=== PATIENT | male | born 1985 | race Caucasian/White ===

== ENCOUNTER 2024-09-20 17:24 | Inpatient (IN) ==
[2024-09-20 17:43] LABS: Basophils # (auto) 0.08 K/uL (0.00-0.20); Basophils % (auto) 0.6 %; Eosinophils # (auto) 0.53 K/uL (0.00-0.50); Eosinophils % (auto) 3.7 %; Hematocrit (blood only) 49.4 % (42.0-52.0); Hemoglobin 17.2 g/dl (14.0-18.0); Immature Granulocytes # (auto) 0.08 K/uL (0.01-0.20); Immature Granulocytes % (auto) 0.6 %; Lymphocytes % (auto) 16.1 %; Mean Corpuscular Hemoglobin 32.2 pg (25.0-34.0); Mean Corpuscular Hgb Conc 34.8 g/dL (32.0-36.0); Mean Corpuscular Volume 92.5 fL (80.0-100.0); Monocytes # (auto) 1.02 K/uL (0.11-0.59); Monocytes % (auto) 7.1 %; Neutrophils % (auto) 71.9 %; Platelet Count 213 K/uL (130-400); RDW Coefficient of Variation 12.8 % (11.5-14.5); RDW Standard Deviation 43.6 fL (36.4-46.3); Red Blood Count 5.34 M/uL (4.70-6.10); White Blood Count 14.31 K/ul (4.8-10.8)
[2024-09-20 18:02] LABS: Albumin Globulin Ratio 1.6 (0.9-2); Albumin Level 4.9 gm/dl (3.4-5.0); BUN Creatinine Ratio 20.2 (10-20); Calcium 10.2 mg/dl (8.6-10.3); Creatinine Clr Calc Pharmacy 115.8 ml/min; Globulin 3.1 gm/dl (2.5-4.0); Potassium 4.7 mmol/L (3.5-5.1)
[2024-09-20] MEDS: OPTIRAY 320 100ml IV ONE (18:15)
--- NOTE | 2024-09-20 18:38 | CT Scan Report ---
EXAMINATION: CT of the abdomen and pelvis performed after the administration of IV contrast TECHNIQUE: Helical CT images from the lung bases through the symphysis pubis were obtained with contrast. Coronal and sagittal reformatted images were generated at a workstation for further assessment. Dose reduction techniques were achieved by using automatic exposure control and/or adjustment of mA and/or kV according to patient size and/or use of iterative reconstruction technique. COMPARISON: None HISTORY: Abdominal pain FINDINGS: Lower chest: No consolidation. No pleural effusion or pneumothorax. Liver: No suspicious liver lesions. Portal veins appear patent. Gallbladder: No gallstones. No evidence of acute cholecystitis. Spleen: Normal size. Pancreas: No suspicious pancreatic lesions. The pancreatic duct is not dilated. Adrenal glands: No adrenal nodules. Kidneys: No hydronephrosis or obstructing renal stones. Bladder / Pelvic organs: The urinary bladder is decompressed and otherwise appears within normal limits. There is mild thickening of the wall of the bladder superiorly at the region of fistula, which communicates with the sigmoid colon. No significant air in the bladder lumen seen.. Bowel: No bowel obstruction. There is a thickened soft tissue band about the undersurface of the sigmoid colon extending to contact the urinary bladder. Inflammatory fat stranding is seen about the superior aspect of the sigmoid colon centered about a small inflamed diverticulum. The appendix is unremarkable. Lymph nodes: No retroperitoneal, mesenteric, or pelvic lymphadenopathy. Peritoneum / Retroperitoneum: No free fluid or air within the abdomen. Vessels: No infrarenal aortic aneurysm. Bones and soft tissues: No suspicious lesion in the bones. IMPRESSION: Findings of acute uncomplicated diverticulitis are seen about the superior aspect of the sigmoid colon. 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 The urinary bladder wall superiorly appears thickened, which is likely reactive. No air in the urinary bladder to specifically suggest communication to the bladder lumen. Electronically signed by Raul Gonsalez 09-20-2024 6:36 PM
--- NOTE | 2024-09-20 19:09 | Emergency Department Note ---
ED Provider Note History of Present Illness Chief Complaint: Abdominal Pain Stated Complaint: ABD PAIN, DIVERTICULITIS FLARE UP Time Seen by Provider: 09/20/24 18:44 Source: patient Mode of arrival: ambulatory Limitations: no limitations This patient is a 38-year-old male who presents to the emergency department for evaluation of abdominal pain which started 1 week ago. Patient reports that he has had abdominal pain, bloating and intermittent fevers. He began vomiting today. He reports that he has been constipated but does have an urge to move his bowels. He has had a sensation of some difficulty urinating but admits he is not eating or drinking much. He reports a history of diverticulitis and states that 7 to 8 months ago, he had his initial diagnosis and at the time had an abscess and was septic. He was hospitalized for IV antibiotics and IR drainage at [facility]. He admits he has had what he believes are some small flareups over the past 1 to 2 years, which typically improve when he stops eating for a few days. He admits that he was supposed to follow-up for a colonoscopy but has not yet done this. Denies any rectal bleeding. Home Medications Medication Instructions Recorded Confirmed Type amoxicillin 875 mg-potassium 1 tab PO BID #20 tabs 09/24/24 Rx clavulanate 125 mg tablet Allergies Allergy/AdvReac Type Severity Reaction Status Date / Time No Known Allergies Allergy Unknown Unverified 05/05/09 09:09 Past Med/Surg History Problem List Acute diverticulitis Diverticulitis Family History Other Adopted Social History Smoking Status: Never smoker Hx Alcohol Use: No Hx Substance Use: Yes Last Used Substance: Unknown Preferred Language: Belarusian Communication Ability: Effective Play Back Operator Required: No Current Living Situation: Spouse and Family Feels Safe at Home: Yes Assistive Devices: None Physical Exam Vital Signs Vital Signs - 24 hr 09/20/24 17:26 09/20/24 19:16 09/20/24 19:24 Temperature 36.6 C Temperature Source Skin Pulse Rate 102 H 93 H Respiratory Rate 18 Respiratory Effort / Characteristics Non-Labored Respiratory Depth Normal Blood Pressure 151/94 H Blood Pressure Mean 113 Pulse Oximetry 95 Oxygen Delivery Method Room Air Sepsis Recent Fever Within 48 Hours No Sepsis New/Unexplained Change in Mental Status No Sepsis Action Taken by Nursing No Action Required VITALS: Vitals are noted on the nurse's note and reviewed by myself. GENERAL: This is a 38-year-old male, in no acute distress, well-developed well- nourished. SKIN: The skin was without rashes. MOUTH: Mucous membranes moist. HEART: Regular rate and rhythm without murmurs gallops or rubs. LUNGS: Clear to auscultation bilaterally without wheezes, rales or rhonchi. ABDOMEN: Positive bowel sounds x 4. Soft, tenderness across lower abdomen. No guarding or rebound tenderness. NEURO: Patient was alert and oriented. PSYCH: Patient pleasant, cooperative. Course Administered Medications Discontinued Medications Acetaminophen (Acetaminophen 325 Mg Tab) 650 mg PO QID RIOS Stop: 10/22/24 12:59 Last Admin: 09/24/24 13:59 Dose: 650 mg Documented By: Admin: 09/24/24 07:34 Dose: 650 mg Documented By: Admin: 09/23/24 21:42 Dose: 650 mg Documented By: Admin: 09/23/24 18:01 Dose: 650 mg Documented By: Admin: 09/23/24 13:37 Dose: Not Given Documented By: Admin: 09/23/24 09:51 Dose: 650 mg Documented By: Admin: 09/22/24 21:01 Dose: 650 mg Documented By: Admin: 09/22/24 16:51 Dose: 650 mg Documented By: Admin: 09/22/24 12:32 Dose: 650 mg Documented By: RICO Sodium Chloride (Nss) 1,000 mls @ 999 mls/hr IV .Q1H1M ONE Stop: 09/20/24 20:10 Last Infusion: 09/20/24 22:59 Dose: Infused Documented By: Admin: 09/20/24 19:19 Dose: 999 mls/hr Documented By: LORENZO Piperacillin Sod/Tazobactam Sod (Zosyn) 4.5 gm in 100 mls @ 200 mls/hr IV NOW ONE Stop: 09/20/24 19:39 Last Infusion: 09/20/24 22:59 Dose: Infused Documented By: Admin: 09/20/24 19:26 Dose: 200 mls/hr Documented By: LORENZO Sodium Chloride (Nss) 1,000 mls @ 125 mls/hr IV .Q8H RIOS Stop: 09/21/24 20:44 Last Infusion: 09/21/24 22:27 Dose: Infused Documented By: Admin: 09/21/24 14:27 Dose: 125 mls/hr Documented By: Infusion: 09/21/24 13:57 Dose: Infused Documented By: Admin: 09/21/24 05:57 Dose: 125 mls/hr Documented By: Infusion: 09/21/24 05:56 Dose: Infused Documented By: Admin: 09/20/24 21:04 Dose: 125 mls/hr Documented By: TIGIST Acetaminophen (Ofirmev) 1,000 mg in 100 mls @ 400 mls/hr IV Q8H PRN PRN Reason: Pain or Fever Stop: 09/23/24 22:57 Last Infusion: 09/22/24 08:52 Dose: Infused Documented By: Admin: 09/22/24 08:11 Dose: 400 mls/hr Documented By: Infusion: 09/21/24 12:47 Dose: Infused Documented By: Admin: 09/21/24 12:19 Dose: 400 mls/hr Documented By: YOBANY Piperacillin Sod/Tazobactam Sod (Zosyn) 4.5 gm in 100 mls @ 25 mls/hr IV Q8H RIOS; Protocol Stop: 10/01/24 01:59 Last Infusion: 09/24/24 14:12 Dose: Infused Documented By: Admin: 09/24/24 10:09 Dose: 25 mls/hr Documented By: Infusion: 09/24/24 06:32 Dose: Infused Documented By: Admin: 09/24/24 01:38 Dose: 25 mls/hr Documented By: EFAc Infusion: 09/23/24 22:05 Dose: Infused Documented By: Admin: 09/23/24 18:01 Dose: 25 mls/hr Documented By: Infusion: 09/23/24 13:59 Dose: Infused Documented By: Infusion: 09/23/24 10:00 Dose: 25 mls/hr Documented By: Infusion: 09/23/24 09:53 Dose: 0 mls/hr Documented By: Admin: 09/23/24 09:52 Dose: 25 mls/hr Documented By: Infusion: 09/23/24 06:26 Dose: Infused Documented By: Admin: 09/23/24 02:32 Dose: 25 mls/hr Documented By: Infusion: 09/22/24 22:08 Dose: Infused Documented By: Admin: 09/22/24 17:53 Dose: 25 mls/hr Documented By: Infusion: 09/22/24 15:19 Dose: Infused Documented By: Admin: 09/22/24 11:07 Dose: 25 mls/hr Documented By: Infusion: 09/22/24 05:32 Dose: Infused Documented By: Admin: 09/22/24 01:29 Dose: 25 mls/hr Documented By: Infusion: 09/21/24 22:34 Dose: Infused Documented By: Admin: 09/21/24 18:34 Dose: 25 mls/hr Documented By: Infusion: 09/21/24 15:21 Dose: Infused Documented By: Admin: 09/21/24 10:02 Dose: 25 mls/hr Documented By: Infusion: 09/21/24 06:27 Dose: Infused Documented By: Admin: 09/21/24 02:18 Dose: 25 mls/hr Documented By: SANDRA Sodium Chloride (Nss) 1,000 mls @ 125 mls/hr IV .Q8H RIOS Stop: 09/22/24 16:14 Last Infusion: 09/22/24 17:48 Dose: Infused Documented By: Admin: 09/22/24 08:11 Dose: 125 mls/hr Documented By: RICO Sodium Chloride (Nss) 1,000 mls @ 80 mls/hr IV .[id number] RIOS Stop: 09/23/24 16:29 Last Infusion: 09/23/24 08:17 Dose: Infused Documented By: Admin: 09/22/24 19:35 Dose: 80 mls/hr Documented By: Infusion: 09/22/24 19:35 Dose: Infused Documented By: Admin: 09/22/24 16:54 Dose: 80 mls/hr Documented By: RICO Ioversol (Optiray 320 100ml) 93 ml IV ONCE ONE Stop: 09/20/24 18:16 Last Admin: 09/20/24 18:15 Dose: 93 ml Documented By: EARLENE Ketorolac Tromethamine (Ketorolac Tromethamine 15 Mg/Ml Vial) 15 mg IV NOW STA Stop: 09/20/24 19:11 Last Admin: 09/20/24 19:22 Dose: 15 mg Documented By: LORENZO Ketorolac Tromethamine (Ketorolac Tromethamine 15 Mg/Ml Vial) 10 mg IV Q6H PRN PRN Reason: Pain (1-5) or patient preferen Last Admin: 09/22/24 17:57 Dose: 10 mg Documented By: Admin: 09/21/24 14:43 Dose: 10 mg Documented By: YOBANY Morphine Sulfate (Morphine Sulfate 4 Mg/Ml 1 Ml Carp\Vial) 2 mg IV Q6H PRN PRN Reason: Pain (6,7,8,9,10) Stop: 10/04/24 22:57 Last Admin: 09/21/24 15:26 Dose: 2 mg Documented By: YOBANY Ondansetron HCl (Ondansetron Inj 2 Mg/Ml 2 Ml Vial) 4 mg IV NOW STA Stop: 09/20/24 19:11 Last Admin: 09/20/24 19:22 Dose: 4 mg Documented By: LORENZO Ondansetron HCl (Ondansetron Inj 2 Mg/Ml 2 Ml Vial) 4 mg IV Q6H PRN PRN Reason: Nausea Stop: 10/20/24 22:57 Last Admin: 09/21/24 15:27 Dose: 4 mg Documented By: YOBANY Medical Decision Making Differential Diagnosis Appendicitis, testicular torsion, infections, diverticulitis, UTI, obstruction, mesenteric ischemia, aortic pathology, inflammatory bowel disease, renal colic, PUD, pancreatitis, biliary pathology, hernia, volvulus, constipation, as well as other pathologies. Laboratory Data Attestation: I reviewed the patient's lab results. 09/24/24 07:15 09/24/24 07:15 Lab Results 09/20/24 09/20/24 09/20/24 Range/Units 17:31 17:32 19:35 WBC 14.31 H (4.8-10.8) K/ul RBC 5.34 (4.70-6.10) M/uL Hgb 17.2 (14.0-18.0) g/dl Hct 49.4 (42.0-52.0) % MCV 92.5 (80.0-100.0) fL MCH 32.2 (25.0-34.0) pg MCHC 34.8 (32.0-36.0) g/dL RDW Std Deviation 43.6 (36.4-46.3) fL RDW Coeff of Kelly 12.8 (11.5-14.5) % Plt Count 213 (130-400) K/uL MPV 10.0 (9.4-12.4) fL Immature Gran % (Auto) 0.6 % Neut % (Auto) 71.9 % Lymph % (Auto) 16.1 % [place] % (Auto) 7.1 % Eos % (Auto) 3.7 % Baso % (Auto) 0.6 % Neut # (Auto) 10.30 H (1.40-6.50) K/uL Lymph # (Auto) 2.30 (1.20-3.40) K/uL [place] # (Auto) 1.02 H (0.11-0.59) K/uL Eos # (Auto) 0.53 H (0.00-0.50) K/uL Baso # (Auto) 0.08 (0.00-0.20) K/uL Immature Gran # (Auto) 0.08 (0.01-0.20) K/uL Sodium 137 (136-145) mmol/L Potassium 4.7 (3.5-5.1) mmol/L Chloride 100 (98-107) mmol/L Carbon Dioxide 30 (21-32) mmol/L Anion Gap 7 (3-11) BUN 23 (6-23) mg/dl Creatinine 1.14 (0.6-1.4) mg/dl Est Cr Clr Drug Dosing 115.8 ml/min eGFR 85.48 BUN/Creatinine Ratio 20.2 H (10-20) Glucose 94 (70-99(Fasting)) mg/dl Lactate 1.0 (0.4-2.0) mmol/L Calcium 10.2 (8.6-10.3) mg/dl Total Bilirubin 1.0 (0.2-1.0) mg/dl AST 20 (13-39) U/L ALT 26 (7-52) U/L Alkaline Phosphatase 60 (34-104) U/L Total Protein 8.0 (6.0-8.3) gm/dl Albumin 4.9 (3.4-5.0) gm/dl Globulin 3.1 (2.5-4.0) gm/dl Albumin/Globulin Ratio 1.6 (0.9-2) Lipase 14 (11-82) U/L Procalcitonin 0.07 (0-0.5) ng/ml Imaging Data Attestation: I personally reviewed and interpreted this imaging study as follows: Radiologist's Impression: Abdomen/Pelvis CT 09/20/24 17:34 EXAMINATION: CT of the abdomen and pelvis performed after the administration of IV contrast TECHNIQUE: Helical CT images from the lung bases through the symphysis pubis were obtained with contrast. Coronal and sagittal reformatted images were generated at a workstation for further assessment. Dose reduction techniques were achieved by using automatic exposure control and/or adjustment of mA and/or kV according to patient size and/or use of iterative reconstruction technique. COMPARISON: None HISTORY: Abdominal pain FINDINGS: Lower chest: No consolidation. No pleural effusion or pneumothorax. Liver: No suspicious liver lesions. Portal veins appear patent. Gallbladder: No gallstones. No evidence of acute cholecystitis. Spleen: Normal size. Pancreas: No suspicious pancreatic lesions. The pancreatic duct is not dilated. Adrenal glands: No adrenal nodules. Kidneys: No hydronephrosis or obstructing renal stones. Bladder / Pelvic organs: The urinary bladder is decompressed and otherwise appears within normal limits. There is mild thickening of the wall of the bladder superiorly at the region of fistula, which communicates with the sigmoid colon. No significant air in the bladder lumen seen.. Bowel: No bowel obstruction. There is a thickened soft tissue band about the undersurface of the sigmoid colon extending to contact the urinary bladder. Inflammatory fat stranding is seen about the superior aspect of the sigmoid colon centered about a small inflamed diverticulum. The appendix is unremarkable. Lymph nodes: No retroperitoneal, mesenteric, or pelvic lymphadenopathy. Peritoneum / Retroperitoneum: No free fluid or air within the abdomen. Vessels: No infrarenal aortic aneurysm. Bones and soft tissues: No suspicious lesion in the bones. IMPRESSION: Findings of acute uncomplicated diverticulitis are seen about the superior aspect of the sigmoid colon. 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 The urinary bladder wall superiorly appears thickened, which is likely reactive. No air in the urinary bladder to specifically suggest communication to the bladder lumen. Electronically signed by Raul Gonsalez 09-20-2024 6:36 PM MDM Narrative This patient is a 38-year-old male who presents to the emergency department for evaluation of abdominal pain, vomiting and fevers. Patient has a history of diverticulitis with abscess requiring hospitalization and IR drainage. Patient is from out of town and is visiting family in the area. Labs revealed a leukocytosis of 14,000. Lactate is not elevated. Kidney function within normal limits. CT of the abdomen/pelvis performed and reviewed by radiology. This shows acute uncomplicated diverticulitis with findings suspicious for a fistula. General surgery was consulted and due to patient's history and severity of symptoms did recommend admission with IV antibiotics. Patient given a dose of Zosyn. He was treated with IV fluids, Zofran and Toradol with improvement. Case discussed with the [facility] hospitalist service who will evaluate the patient for admission. Discharge Plan Visit Data Chief Complaint: Abdominal Pain Stated Complaint: ABD PAIN, DIVERTICULITIS FLARE UP ED Provider: Mikey Hensley ED Midlevel Provider: Becky Garibay Patient Disposition: Admitted As Inpatient Discharge Instructions Interventions: ED Discharge Assessment Last Done: 09/20/24 22:14
[2024-09-20] MEDS: SODIUM CHLORIDE 0.9% 1,000 ML IV ONE (19:19)
[2024-09-20] MEDS: KETOROLAC TROMETHAMINE 15 MG/ML VIAL IV STA (19:22)
[2024-09-20] MEDS: ONDANSETRON INJ 2 MG/ML 2 ML VIAL IV STA (19:22)
[2024-09-20] MEDS: PIPERACILLIN/TAZOBACTAM 4.5 GM/100 ML BAG IV ONE (19:26)
--- NOTE | 2024-09-20 20:37 | Surgery Consultation ---
Date of Consultation September 20, 2024 Assessment & Plan (1) Diverticulitis: I discussed with the treating clinician in the emergency department the patient is being admitted on the hospitalist service. From surgery perspective we recommend the following: As the patient previously was treated for diverticulitis in a conservative manner will implement a similar treatment strategy at this time Would recommend keeping the patient n.p.o. (I feel it would be acceptable for him to have an occasional ice chip for comfort) He should be hydrated with intravenous fluids (I have ordered normal saline solution at 125 cc/h) Antibiotics in form of Zosyn have been initiated and he should be continued Blood cultures have been sent we will follow for the results of these There is concern on patient's CT scan that he may have an underlying colovesical fistula. Would recommend checking urinalysis and this has been ordered and is pending. Will follow-up for the results of this. If there does remain ongoing concern for colovesical fistula consideration can be given to performing CT cystogram I did discuss with the patient that it would be preferable to treat him in a conservative manner as any emergent surgery would require a temporary colostomy which she would like to avoid. I also discussed with the patient that will be preferable for him to have an up-to-date colonoscopy prior to undergoing any surgical intervention for this problem and he expressed his understanding At the present time the patient is nontoxic-appearing. He is normotensive with only slight tachycardia (heart rate is in the 90s) and he is afebrile. He does have a slight leukocytosis but his renal function is normal and he does not have an elevated lactic acid level and therefore I feel conservative management is warranted at this time Additional recommendations will be forthcoming based on his clinical course as it unfolds History of Present Illness Reason for Consultation: Diverticulitis History of Present Illness This is a 38-year-old male who presented to the emergency department secondary to abdominal pain. Patient reports that approximately 6 months ago he was treated for diverticulitis at a hospital in [place] where he lives. ([place] is [place] During this episode of diverticulitis he was treated in a conservative manner with intravenous fluids, bowel rest, and antibiotics. Patient says that he was able to be discharged home where he made a full recovery and was recommended that he undergo a colonoscopy in the near future. He does report that he has yet to have this procedure performed. As noted above the patient presented to the emergency department secondary to abdominal pain. The patient says that the pain has been present for "a few days". He says that he has been febrile with fevers as high as 101. He does not report any mitigating factors to the pain and the pain does not radiate but is located primarily on the left side of his abdomen. He says his most recent bowel movement was approximately 2 days ago. He says he has not had any oral intake since last night. He has never had any abdominal surgeries. Concerning urologic symptomatology he denies any dysuria notes that his urine is clear and not discolored. He has no hematuria. He also has no pneumaturia. Since arrival to the hospital this patient has had labs and imaging which independent reviewed. A CT scan of the abdomen pelvis that showed the patient had findings consistent with acute uncomplicated diverticulitis in the superior aspect of the sigmoid colon. There was thickening/bandlike tissue structure extending to the urinary bladder which was concerning for an underlying fistula. There is no air in the urinary bladder however. Labs included CBC white blood cell count was elevated 14.3. Hemoglobin, hematocrit, and platelet count were normal. Chemistry profile showed sodium and potassium as well as the BUN and creatinine were normal. His lactic acid level is nonelevated 1.0. There is no elevation of LFTs or lipase. At the time of my interview the patient was resting comfortably bed and he was in no distress. Allergies Allergy/AdvReac Type Severity Reaction Status Date / Time No Known Allergies Allergy Unknown Unverified 05/05/09 09:09 Home Medications Medication Instructions Recorded Confirmed Type No Known Home Medications 09/20/24 09/20/24 History Patient History Social History Smoking Status: Never smoker Review of Systems Review of Systems: All systems reviewed & are unremarkable except as noted in HPI & below Physical Exam Constitutional: WD/WN, vitals as above Eyes: no conjunctival abnormality ENMT: Ears: no hearing impairment and no external ear abnormality Mouth: no oropharynx abnormality Neck: trachea midline Respiratory: normal respiratory effort; no respiratory distress and no labored breathing Cardiovascular: Rate/Rhythm: regular rate and regular rhythm Vessels: dorsalis pedis pulses present Gastrointestinal (Abdomen): Patient's abdomen is soft and nondistended. There is pain noted palpation greatest on the left side of his abdomen but there is no rebound tenderness or guarding or other signs of peritonitis. Musculoskeletal: No calf tenderness Skin: no rashes Neurologic: moves all extremities Psychiatric: A+Ox3, euthymic affect Results & Data Vital Signs (Past 12 Hours) Vital Signs Temp Pulse Resp BP Pulse Ox O2 Del Method 09/20/24 19:16 93 H 09/20/24 17:26 36.6 C 102 H 18 151/94 H 95 Room Air PG Care Time/CCT Total # of Minutes Spent Total Time Spent with Patient: Total time spent is greater than 50% in coordination of care (as documented) at patient's floor/unit and/or counseling patient: Coding Level of Care Code 37905 IN/OBS CONSULT LVL 5,80M Diagnoses Diverticulitis K57.92
[2024-09-20] MEDS: SODIUM CHLORIDE 0.9% 1,000 ML IV SCH (21:04)
--- NOTE | 2024-09-20 21:23 | History & Physical Report ---
Date of Service September 20, 2024 Assessment & Plan (1) Acute diverticulitis: Plan Pt is a 38 yo male with a past medical history of pior complicated diverticulitis 6 months ago who presents to the hospital on 09/20 for acute uncomplicated diverticulitis. #Acute diverticulitis - prior hx of diverticulitis 6 months ago, scheduled for OP colonoscopy in November - CT abd; acute uncomplicated diverticulitis, possible fistula extending to but not communicating with bladder noted - started on zosyn, to continue on admission - npo per surgery reccs - blood cx pending - seen by gen surgery team that recommend admission for monitoring given inability to po and fevers at home for IV antibiotics tonight VTE ppx: none, low risk History of Present Illness Chief Complaint: Acute uncomplicated diverticulitis Primary Care Provider: NO PCP Pt is a 38 yo male with a past medical history of pior complicated diverticu litis 6 months ago who presents to the hospital on 09/20 for acute uncomplicated diverticulitis. Pt states that episode started a few days ago with abdominal pain. He states he had diverticulitis about 6 months ago in [place] and was due to have a f/u colonoscopy from that at the beginning of November before establishing with GI for further guidance. He states that he has had just about no oral intake the last day or so since eating food made his abdominal pain and nausea/vomiting worse. He reports fevers at home the last few days up to 101 F. He states right now he is feeling well but has not eaten anything since being here either. No chest pain or SOB. No nausea or vomiting since being here. Allergies Allergy/AdvReac Type Severity Reaction Status Date / Time No Known Allergies Allergy Unknown Unverified 05/05/09 09:09 Home Medications Medication Instructions Recorded Confirmed Type No Known Home Medications 09/20/24 09/20/24 History Past Med/Surg History Problem List Acute diverticulitis Diverticulitis Family History Other Adopted Social History Smoking Status: Never smoker Hx Alcohol Use: No Hx Substance Use: Yes Last Used Substance: Unknown Preferred Language: Portuguese Communication Ability: Effective Internet Marketing Consultant Required: No Current Living Situation: Spouse and Family Other Information That Helps Us Care for You: No Feels Safe at Home: Yes Safety Concerns: Feels Safe At This Time Assistive Devices: None Review of Systems Review of Systems: Per HPI. Physical Exam Physical Exam: General: Alert and oriented, no acute distress, comfortable appearing HEENT: Normocephalic, moist oral mucosa, Cardio: Regular rate and rhythm, no murmur, Resp: Lungs clear to auscultation b/l, no wheezes or rhonchi, GI: Soft, nondistended, bowel sounds active, diffuse tenderness to palpation deyvi ecially in LLQ Skin: Warm, pink, dry, Results & Data Results & Data Vital Signs (Past 12 Hours) Vital Signs Temp Pulse Resp BP Pulse Ox O2 Del Method 09/20/24 19:16 93 H 09/20/24 17:26 36.6 C 102 H 18 151/94 H 95 Room Air Laboratory Results Laboratory Results WBC 14.31 K/ul (4.8-10.8) H 09/20/24 17:31 RBC 5.34 M/uL (4.70-6.10) 09/20/24 17:31 Hgb 17.2 g/dl (14.0-18.0) 09/20/24 17:31 Hct 49.4 % (42.0-52.0) 09/20/24 17:31 MCV 92.5 fL (80.0-100.0) 09/20/24 17:31 MCH 32.2 pg (25.0-34.0) 09/20/24 17:31 MCHC 34.8 g/dL (32.0-36.0) 09/20/24 17:31 RDW Std Deviation 43.6 fL (36.4-46.3) 09/20/24 17:31 RDW Coeff of Kelly 12.8 % (11.5-14.5) 09/20/24 17:31 Plt Count 213 K/uL (130-400) 09/20/24 17:31 MPV 10.0 fL (9.4-12.4) 09/20/24 17:31 Immature Gran % (Auto) 0.6 % 09/20/24 17:31 Neut % (Auto) 71.9 % 09/20/24 17:31 Lymph % (Auto) 16.1 % 09/20/24 17:31 [place] % (Auto) 7.1 % 09/20/24 17:31 Eos % (Auto) 3.7 % 09/20/24 17:31 Baso % (Auto) 0.6 % 09/20/24 17:31 Neut # (Auto) 10.30 K/uL (1.40-6.50) H 09/20/24 17:31 Lymph # (Auto) 2.30 K/uL (1.20-3.40) 09/20/24 17:31 [place] # (Auto) 1.02 K/uL (0.11-0.59) H 09/20/24 17:31 Eos # (Auto) 0.53 K/uL (0.00-0.50) H 09/20/24 17:31 Baso # (Auto) 0.08 K/uL (0.00-0.20) 09/20/24 17:31 Immature Gran # (Auto) 0.08 K/uL (0.01-0.20) 09/20/24 17:31 Sodium 137 mmol/L (136-145) 09/20/24 17:31 Potassium 4.7 mmol/L (3.5-5.1) 09/20/24 17:31 Chloride 100 mmol/L (98-107) 09/20/24 17:31 Carbon Dioxide 30 mmol/L (21-32) 09/20/24 17:31 Anion Gap 7 (3-11) 09/20/24 17:31 BUN 23 mg/dl (6-23) 09/20/24 17:31 Creatinine 1.14 mg/dl (0.6-1.4) 09/20/24 17:31 Est Cr Clr Drug Dosing 115.8 ml/min 09/20/24 17:31 eGFR 85.48 09/20/24 17:31 BUN/Creatinine Ratio 20.2 (10-20) H 09/20/24 17:31 Glucose 94 mg/dl (70-99(Fasting)) 09/20/24 17:31 Lactate 1.0 mmol/L (0.4-2.0) 09/20/24 19:35 Calcium 10.2 mg/dl (8.6-10.3) 09/20/24 17:31 Total Bilirubin 1.0 mg/dl (0.2-1.0) 09/20/24 17:31 AST 20 U/L (13-39) 09/20/24 17:31 ALT 26 U/L (7-52) 09/20/24 17:31 Alkaline Phosphatase 60 U/L (34-104) 09/20/24 17:31 Total Protein 8.0 gm/dl (6.0-8.3) 09/20/24 17: Albumin 4.9 gm/dl (3.4-5.0) 09/20/24 17: Globulin 3.1 gm/dl (2.5-4.0) 09/20/24 17: Albumin/Globulin Ratio 1.6 (0.9-2) 09/20/24 17: Lipase 14 U/L (11-82) 09/20/24 17:31 Urine Color Yellow 09/20/24 23:10 Urine Appearance Clear (Clear) 09/20/24 23:10 Urine pH 5.0 (4.5-7.5) 09/20/24 23:10 Ur Specific [employer] > 1.045 (1.000-1.030) H 09/20/24 23:10 Urine Protein Negative (Negative) 09/20/24 23:10 Urine Glucose (UA) Negative (Negative) 09/20/24 23:10 Urine Ketones Negative (Negative) 09/20/24 23:10 Urine Blood Negative (Negative) 09/20/24 23:10 Urine Nitrite Negative (Negative) 09/20/24 23:10 Urine Bilirubin Negative (Negative) 09/20/24 23:10 Urine Urobilinogen Negative (Negative) 09/20/24 23:10 Ur Leukocyte Esterase Negative (Negative) 09/20/24 23:10 Impressions Abdomen/Pelvis CT 09/20/24 17:34 EXAMINATION: CT of the abdomen and pelvis performed after the administration of IV contrast TECHNIQUE: Helical CT images from the lung bases through the symphysis pubis were obtained with contrast. Coronal and sagittal reformatted images were generated at a workstation for further assessment. Dose reduction techniques were achieved by using automatic exposure control and/or adjustment of mA and/or kV according to patient size and/or use of iterative reconstruction technique. COMPARISON: None HISTORY: Abdominal pain FINDINGS: Lower chest: No consolidation. No pleural effusion or pneumothorax. Liver: No suspicious liver lesions. Portal veins appear patent. Gallbladder: No gallstones. No evidence of acute cholecystitis. Spleen: Normal size. Pancreas: No suspicious pancreatic lesions. The pancreatic duct is not dilated. Adrenal glands: No adrenal nodules. Kidneys: No hydronephrosis or obstructing renal stones. Bladder / Pelvic organs: The urinary bladder is decompressed and otherwise appears within normal limits. There is mild thickening of the wall of the bladder superiorly at the region of fistula, which communicates with the sigmoid colon. No significant air in the bladder lumen seen.. Bowel: No bowel obstruction. There is a thickened soft tissue band about the undersurface of the sigmoid colon extending to contact the urinary bladder. Inflammatory fat stranding is seen about the superior aspect of the sigmoid colon centered about a small inflamed diverticulum. The appendix is unremarkable. Lymph nodes: No retroperitoneal, mesenteric, or pelvic lymphadenopathy. Peritoneum / Retroperitoneum: No free fluid or air within the abdomen. Vessels: No infrarenal aortic aneurysm. Bones and soft tissues: No suspicious lesion in the bones. IMPRESSION: Findings of acute uncomplicated diverticulitis are seen about the superior aspect of the sigmoid colon. 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 The urinary bladder wall superiorly appears thickened, which is likely reactive. No air in the urinary bladder to specifically suggest communication to the bladder lumen. Electronically signed by Raul Gonsalez 09-20-2024 6:36 PM Supervising Physician Co-Signing Physician Notes patient seen and examined, chart reviewed, case discussed with Dr. Mosqueda likely with the assessment and plan as documented above. In brief, patient is a 38-year-old male with history of prior acute diverticulitis sepsis presenting with diffuse abdominal pain. CT abdomen as above with evidence of acute uncomplicated diverticulitis. evidence of possible fistula. Patient reports fevers prior to arrival. Presently is afebrile and hemodynamically stable. Nontoxic in appearance. He does have significant lower abdominal tenderness with some voluntary guarding. No bloating, no rebound, no peritonitis. On physical exam he is afebrile, hemodynamically stable and nontoxic in appearance Skinwarm, dry, intact no rash or lesions HEENTmoist mucous membranes, neck supple Heart+ S1, S2, regular, no murmur/rub/gallops LungsCTA anteriorly, no rales/rhonchi/wheezes Abdomendiminished bowel sounds but present, no distention, lower abdominal te nderness with no rebound Extremitieswarm, well-perfused Labs and images reviewed. Significant for WBC = 14.31. He does have very mild elevation of peripheral eosinophils. Question possibility of eosinophilic colitis Assessment/[id number] male presenting with acute uncomplicated diverticulitis. Patient with prior history of severe diverticulitis requiring hospitalization. Presently he is afebrile, hemodynamically stable and nontoxic admit to medical Maintain n.p.o. status Continue IV fluids with normal saline at 125 mL/h Pain control Tylenol morphine as needed Zofran as needed for nausea Continue Zosyn 4.5 g IV every 8 hours General Surgery consultation appreciated Patient is scheduled for colonoscopy in November Remainder of plan as above Resident Activity Tracking Resident Involvement: Resident Care Provided Care Provided: Adult Hospital Medicine
[2024-09-20] MEDS ORDERED: MoRPHine SULFATE 4 MG/ML 1 ML CARP\\VIAL IV PRN (22:58)
[2024-09-20 23:25] LABS: Appearance Urine Clear (Clear); Bilirubin Urine Negative (Negative); Blood Urine Negative (Negative); Color Urine Yellow; Glucose Urine UA Negative (Negative); Ketones Urine Negative (Negative); Leukocyte Esterase Urine Negative (Negative); Nitrite Urine Negative (Negative); Protein Urine Negative (Negative); Specific Gravity Urine > 1.045 (1.000-1.030); Urobilinogen Urine Negative (Negative)
--- NOTE | 2024-09-21 00:12 | Billing Data ---
Date of Service September 20, 2024 Coding Level of Care Code 29041 INT INP/OBS CARE
[2024-09-21] MEDS: PIPERACILLIN/TAZOBACTAM 4.5 GM/100 ML BAG IV SCH (02:18)
[2024-09-21 08:29] LABS: Basophils # (auto) 0.07 K/uL (0.00-0.20); Basophils % (auto) 0.6 %; Eosinophils # (auto) 0.35 K/uL (0.00-0.50); Eosinophils % (auto) 3.2 %; Hematocrit (blood only) 42.2 % (42.0-52.0); Hemoglobin 14.4 g/dl (14.0-18.0); Immature Granulocytes # (auto) 0.04 K/uL (0.01-0.20); Immature Granulocytes % (auto) 0.4 %; Lymphocytes # (auto) 2.75 K/uL (1.20-3.40); Mean Corpuscular Hgb Conc 34.1 g/dL (32.0-36.0); Mean Corpuscular Volume 93.8 fL (80.0-100.0); Mean Platelet Volume 10.4 fL (9.4-12.4); Monocytes # (auto) 1.08 K/uL (0.11-0.59); Monocytes % (auto) 9.8 %; Neutrophils # (auto) 6.69 K/uL (1.40-6.50); Platelet Count 168 K/uL (130-400); RDW Coefficient of Variation 12.8 % (11.5-14.5); RDW Standard Deviation 44.7 fL (36.4-46.3); White Blood Count 10.98 K/ul (4.8-10.8)
[2024-09-21 08:44] LABS: Albumin Globulin Ratio 1.5 (0.9-2); Bilirubin,Total 1.5 mg/dl (0.2-1.0); Calcium 8.5 mg/dl (8.6-10.3); Creatinine Clr Calc Pharmacy 133.1 ml/min; Globulin 2.6 gm/dl (2.5-4.0); Potassium 4.1 mmol/L (3.5-5.1); Total Protein 6.6 gm/dl (6.0-8.3)
[2024-09-21 08:50] LABS: C Reactive Protein 5.11 mg/dl (0-0.5)
[2024-09-21] MEDS: ACETAMINOPHEN 1,000 MG/100 ML VIAL IV PRN (12:19)
--- NOTE | 2024-09-21 12:38 | Surgery Progress Note ---
Date of Service September 21, 2024 Assessment & Plan (1) Acute diverticulitis: Plan: pt here w/ recurring diverticulitis wbc 10 (14). vitals are stable and is afebrile overall pt is feeling improved we are okay with starting clear liquids, would leave at this today recommend pt f/u with a surgeon closer to home ([place]) for consideration of elective surgical resection given recurring episodes & concern for fistula to bladder & his young age no plans for acute surgical intervention indicated at this time. he will benefit from at least another 24hrs of iv abx as above. improving. no urgent surgical intervention indicated. will continue to follow. can have clears Admission and Anticipated Discharge Date Admission Date: September 20, 2024 Subjective Patient feeling better than admission, however still with some pain/discomfort lingering, but overall improved. thirsty. Physical Exam Physical Exam: awake/alert, no distress Gastrointestinal (Abdomen): Percussion/Palpation: + abdomen tender (mild lower abdominal) and abdomen soft Results & Data Vital Signs (Past 12 Hours) Vital Signs Temp Pulse Resp BP Pulse Ox O2 Del Method O2 Flow Rate 09/21/24 07:39 98.1 F 84 16 137/79 93 Nasal Cannula 2 PG Care Time/CCT Total # of Minutes Spent Total Time Spent with Patient: Total time spent is greater than 50% in coordination of care (as documented) at patient's floor/unit and/or counseling patient: Coding Level of Care Code 17609 SUB INP/OBS CARE 10/08MIN Diagnoses Acute diverticulitis K57.92
[2024-09-21] MEDS ORDERED: POLYETHYLENE (MIRALAX) 17 GM PACK PO PRN (14:30)
[2024-09-21] MEDS: KETOROLAC TROMETHAMINE 15 MG/ML VIAL IV PRN (14:43)
[2024-09-21] MEDS: MoRPHine SULFATE 4 MG/ML 1 ML CARP\\VIAL IV PRN (15:26)
[2024-09-21] MEDS: ONDANSETRON INJ 2 MG/ML 2 ML VIAL IV PRN (15:27)
--- NOTE | 2024-09-21 16:35 | Hospitalist Progress Note ---
Date of Service September 21, 2024 Assessment & Plan (1) Acute diverticulitis: Plan Pt is a 38 yo male with a past medical history of pior complicated diverticulitis 6 months ago who presents to the hospital on 09/20 for acute uncomplicated diverticulitis. #Acute diverticulitis - prior hx of diverticulitis 6 months ago, scheduled for OP colonoscopy in November - CT abd; acute uncomplicated diverticulitis, possible fistula extending to but not communicating with bladder noted - started on zosyn, to continue on admission - clear liquid diet started 09/21. - blood cx pending -General surgery following - recommending no surgical intervention at this time and to continue supportive care. - CBC w/ leukocytosis downtrending to 10.98 - BMP w/ stable electrolytes and renal function. - CRP 5.11 - will continue to trend. - Procal negative at 0.07 VTE ppx: none, low risk Admission and Anticipated Discharge Date Admission Date: September 20, 2024 Subjective Patient seen and examined this morning. He felt his pain was improving. He reported no bowel movements thus far. He did feel that he would be able to tolerate a liquid diet and was requesting some water. Physical Exam Constitutional: WD/WN, vitals as above Eyes: PERRL, conjunctivae normal, anicteric sclerae Respiratory: breathing unlabored Cardiovascular: well perfused Gastrointestinal (Abdomen): +BS, LLQ tenderness to palpation. soft. Psychiatric: A+Ox3, euthymic affect Results & Data Results & Data Vital Signs (Past 12 Hours) Vital Signs Temp Pulse Resp BP Pulse Ox O2 Del Method O2 Flow Rate 09/21/24 16:23 36.8 C 99 H 16 142/85 H 97 Room Air 09/21/24 07:39 36.7 C 84 16 137/79 93 Nasal Cannula 2 PG Care Time/CCT Total # of Minutes Spent Total Time Spent with Patient: Total time spent is greater than 50% in coordination of care (as documented) at patient's floor/unit and/or counseling patient: Coding Level of Care Code 36218 SUB INP/OBS CARE 2/35MIN Diagnoses Acute diverticulitis K57.92
[2024-09-22 07:36] LABS: Basophils # (auto) 0.07 K/uL (0.00-0.20); Basophils % (auto) 0.5 %; Eosinophils % (auto) 0.7 %; Hematocrit (blood only) 42.4 % (42.0-52.0); Hemoglobin 14.8 g/dl (14.0-18.0); Immature Granulocytes # (auto) 0.09 K/uL (0.01-0.20); Immature Granulocytes % (auto) 0.6 %; Lymphocytes # (auto) 1.81 K/uL (1.20-3.40); Lymphocytes % (auto) 12.7 %; Mean Corpuscular Hemoglobin 31.8 pg (25.0-34.0); Mean Corpuscular Hgb Conc 34.9 g/dL (32.0-36.0); Mean Corpuscular Volume 91.2 fL (80.0-100.0); Mean Platelet Volume 10.2 fL (9.4-12.4); Monocytes # (auto) 1.11 K/uL (0.11-0.59); Monocytes % (auto) 7.8 %; Neutrophils # (auto) 11.04 K/uL (1.40-6.50); Neutrophils % (auto) 77.7 %; Platelet Count 166 K/uL (130-400); RDW Coefficient of Variation 12.6 % (11.5-14.5); RDW Standard Deviation 41.8 fL (36.4-46.3); Red Blood Count 4.65 M/uL (4.70-6.10); White Blood Count 14.22 K/ul (4.8-10.8)
[2024-09-22 07:38] LABS: Albumin Level 4.1 gm/dl (3.4-5.0); Bilirubin,Total 1.9 mg/dl (0.2-1.0); Calcium 8.6 mg/dl (8.6-10.3); Potassium 3.9 mmol/L (3.5-5.1)
[2024-09-22 07:44] LABS: Albumin Globulin Ratio 1.6 (0.9-2); BUN Creatinine Ratio 13.5 (10-20); C Reactive Protein 18.23 mg/dl (0-0.5); Creatinine Clr Calc Pharmacy 138.6 ml/min; Globulin 2.6 gm/dl (2.5-4.0); Total Protein 6.7 gm/dl (6.0-8.3)
[2024-09-22] MEDS: SODIUM CHLORIDE 0.9% 1,000 ML IV SCH ×2 (08:11→16:54)
--- NOTE | 2024-09-22 09:06 | Surgery Progress Note ---
Date of Service September 22, 2024 Assessment & Plan (1) Acute diverticulitis: Plan: pt is here w/ recurring diverticulitis, no perf/abscess noted on admitting CT scan on 09/20 today pt's wbc increased to 14 (10) in addition to some temperatures ranging from 99-101.8F overnight with HRs 90-120s although pt feels better than admission & not required IV morphine since yesterday around 15:30, he is not quite turned the corner given his wbc/vitals & that he still has moderate abdominal discomfort upon palpation we will back patient's diet down to NPO and continue IVF and IV abx if worsening vitals/symptoms can consider repeat CT scan at some point we will continue to monitor patient very closely as above. wbc up to 14,000 and low grade temps concerning though pt continues to improve slowly clinically soft with +LLQ ttp. no peritoneal signs back to NPO. monitor temp and wbc...if worsens in next [address] scan Admission and Anticipated Discharge Date Admission Date: September 20, 2024 Subjective Although pt does report feeling better overall, he is still having abdominal pain & cramping. He has had some worsening pain with drinking liquids and feeling warm. He has the sensation where he needs to pass gas or have a BM but is unable to get anything out. He feels bloated. Otherwise he denies nausea/vomiting or any troubles with voiding. Physical Exam Physical Exam: awake/alert, no distress Respiratory: normal respiratory effort Gastrointestinal (Abdomen): Percussion/Palpation: + abdomen tender (ttp in the LUQ and across lower abdomen slightly worse in supra pubic area) and abdomen soft Results & Data Vital Signs (Past 12 Hours) Vital Signs Temp Pulse Resp BP Pulse Ox O2 Del Method 09/22/24 07:19 99.7 F H 109 H 18 127/76 94 Room Air 09/21/24 22:53 100.2 F H PG Care Time/CCT Total # of Minutes Spent Total Time Spent with Patient: Total time spent is greater than 50% in coordination of care (as documented) at patient's floor/unit and/or counseling patient: Coding Level of Care Code 53112 SUB INP/OBS CARE 10/08MIN Diagnoses Acute diverticulitis K57.92
--- NOTE | 2024-09-22 10:15 | XRay Report ---
KUB CLINICAL HISTORY: Abdominal pain. COMPARISON STUDY: CT of the abdomen and pelvis September 20, 2024. FINDINGS: The bowel gas pattern is normal. No urinary calculi are present. The amount of stool is wit hin normal limits. Findings consistent with sigmoid diverticulitis on CT of September 20, 2024 not evide nt by radiography. Sensitivity for detection of free air is diminished on supine exam but none is elvis ntified. IMPRESSION: 1. Unremarkable KUB. 2. Findings consistent with sigmoid diverticulitis on CT of September 20, 2024 not evident by radiograph y. ACT 112: Negative or not required by law. Electronically signed by: Yordan Forrest M.D. 09/22/2024 10:14 AM
[2024-09-22] MEDS: ACETAMINOPHEN 325 MG TAB PO SCH (12:32)
--- NOTE | 2024-09-22 16:29 | Hospitalist Progress Note ---
Date of Service September 22, 2024 Assessment & Plan (1) Acute diverticulitis: Plan Pt is a 38 yo male with a past medical history of pior complicated diverticulitis 6 months ago who presents to the hospital on 09/20 for acute uncomplicated diverticulitis. #Acute diverticulitis - prior hx of diverticulitis 6 months ago, scheduled for OP colonoscopy in November - CT abd; acute uncomplicated diverticulitis, possible fistula extending to but not communicating with bladder noted - IV Zosyn - blood cx pending -General surgery following - recommending no surgical intervention at this time, placed back at NPO status after the increasing WBC/CRP. - CBC w/ leukocytosis increased to 14.22 - BMP w/ stable electrolytes and renal function. - CRP increased to 18.23 - Procal negative at 0.07 -consider repeat CTAP if labs worsen along with vitals/symptoms. VTE ppx: none, low risk Admission and Anticipated Discharge Date Admission Date: September 20, 2024 Subjective Patient seen and examined. Patient febrile overnight. Patient reports he did feel febrile overnight but at time of encounter his fever had improved and his pain also was improving. Reports a BM today that was mostly mucous. Denies any overt signs of GI bleeding in the stool. Patient does feel his abdomen is more distended than usual and does feel bloated. Physical Exam Constitutional: WD/WN, vitals as above Eyes: PERRL, conjunctivae normal, anicteric sclerae Gastrointestinal (Abdomen): +BS, lower abdominal quadrants tendernes s to palpation. soft. Results & Data Results & Data Vital Signs (Past 12 Hours) Vital Signs Temp Pulse Resp BP Pulse Ox O2 Del Method 09/22/24 14:37 36.6 C 98 H 16 138/82 94 Room Air 09/22/24 07:19 37.6 C H 109 H 18 127/76 94 Room Air PG Care Time/CCT Total # of Minutes Spent Total Time Spent with Patient: Total time spent is greater than 50% in coordination of care (as documented) at patient's floor/unit and/or counseling patient: Coding Level of Care Code 02686 SUB INP/OBS CARE 2/35MIN Diagnoses Acute diverticulitis K57.92
[2024-09-23 07:12] VITALS: RESP 16
--- NOTE | 2024-09-23 07:52 | Surgery Progress Note ---
Date of Service September 23, 2024 Assessment & Plan (1) Acute diverticulitis: Plan: pt is here w/ recurring diverticulitis, no perf/abscess noted on admitting CT scan on 09/20 pt reports feeling improved overall from yesterday, but still does have ongoing pain in the abdomen to palpation, mostly suprapubic/llq and some LUQ ttp WBC today is pending, last low grade temp was 100F at 7:30pm, he is afebrile with stable vitals this AM He is passing gas and BMs, no nausea/vomiting He was advanced to clears last night by medicine; if WBC increased this AM would back down to NPO, if improved he may continue clears but would not advance past this for today continue IV abx low threshold to repeat CT scan if fevers, worsening pain/symptom pt would very much like to manage this episode conservatively as he has a work trip to planned in 1.5 weeks if does continues to make good progress we will recommend pt f/u with a surgeon closer to home ([facility]) for consideration of elective surgical resection given recurring episodes & concern for fistula to bladder & his young age as above. feeling much better today. hungry abd: soft.+LLQ ttp. less distended stay on clears today. afebrile. wbc still 13,000. Dr. Gamez covering for weekend. Admission and Anticipated Discharge Date Admission Date: September 20, 2024 Subjective Patient reports feeling improved from yesterday. He denies nausea/vomiting. He reports + flatus and BM. He continues to have abdominal pain with palpation. He reports feeling less sweaty/hot than yesterday. Physical Exam Physical Exam: awake/alert, no distress Respiratory: normal respiratory effort Gastrointestinal (Abdomen): Percussion/Palpation: + abdomen tender (less ttp in LUQ, continues w/ ttp in suprapubic and LLQ) and abdomen soft Results & Data Vital Signs (Past 12 Hours) Vital Signs Temp Pulse Resp BP Pulse Ox O2 Del Method 09/23/24 07:11 97.9 F 90 16 138/80 98 Room Air 09/23/24 02:50 98.2 F PG Care Time/CCT Total # of Minutes Spent Total Time Spent with Patient: Total time spent is greater than 50% in coordination of care (as documented) at patient's floor/unit and/or counseling patient: Coding Level of Care Code 82504 SUB INP/OBS CARE 10/08MIN Diagnoses Acute diverticulitis K57.92
[2024-09-23 07:55] LABS: Basophils # (auto) 0.07 K/uL (0.00-0.20); Basophils % (auto) 0.5 %; Eosinophils # (auto) 0.23 K/uL (0.00-0.50); Eosinophils % (auto) 1.7 %; Hematocrit (blood only) 39.4 % (42.0-52.0); Hemoglobin 13.8 g/dl (14.0-18.0); Immature Granulocytes # (auto) 0.07 K/uL (0.01-0.20); Immature Granulocytes % (auto) 0.5 %; Lymphocytes # (auto) 2.05 K/uL (1.20-3.40); Lymphocytes % (auto) 15.3 %; Mean Corpuscular Hemoglobin 32.3 pg (25.0-34.0); Mean Corpuscular Volume 92.3 fL (80.0-100.0); Mean Platelet Volume 10.2 fL (9.4-12.4); Monocytes # (auto) 0.95 K/uL (0.11-0.59); Monocytes % (auto) 7.1 %; Neutrophils # (auto) 10.04 K/uL (1.40-6.50); Neutrophils % (auto) 74.9 %; Platelet Count 161 K/uL (130-400); RDW Coefficient of Variation 12.5 % (11.5-14.5); RDW Standard Deviation 42.6 fL (36.4-46.3); Red Blood Count 4.27 M/uL (4.70-6.10); White Blood Count 13.41 K/ul (4.8-10.8)
[2024-09-23 08:26] LABS: Albumin Globulin Ratio 1.4 (0.9-2); Albumin Level 3.8 gm/dl (3.4-5.0); BUN Creatinine Ratio 10.8 (10-20); Bilirubin,Total 1.5 mg/dl (0.2-1.0); C Reactive Protein 22.57 mg/dl (0-0.5); Calcium 8.5 mg/dl (8.6-10.3); Creatinine Clr Calc Pharmacy 143.1 ml/min; Globulin 2.8 gm/dl (2.5-4.0); Potassium 3.5 mmol/L (3.5-5.1); Total Protein 6.6 gm/dl (6.0-8.3)
[2024-09-23 12:12] LABS: Adenovirus F 40/41 PCR Not Detected (NotDetected); Astrovirus PCR Not Detected (NotDetected); Campylobacter PCR Not Detected (NotDetected); Cryptosporidium PCR Not Detected (NotDetected); Cyclospora cayetanensis PCR Not Detected (NotDetected); Entamoeba histolytica PCR Not Detected (NotDetected); Enteroaggregative E.coli(EAEC) Not Detected (NotDetected); Enteropathogenic E.coli (EPEC) Not Detected (NotDetected); Enterotoxigenic E.coli (ETEC) Not Detected (NotDetected); Giardia lamblia PCR Not Detected (NotDetected); Norovirus GI/GII PCR Not Detected (NotDetected); Plesiomonas shigelloides PCR Not Detected (NotDetected); Rotavirus A PCR Not Detected (NotDetected); Salmonella PCR Not Detected (NotDetected); Sapovirus PCR Not Detected (NotDetected); Shiga-like Toxin E.coli (STEC) Not Detected (NotDetected); Shigella/Enteroinvasive E.coli Not Detected (NotDetected); Vibrio cholerae PCR Not Detected (NotDetected); Vibrio species PCR Not Detected (NotDetected); Yersinia enterocolitica PCR Not Detected (NotDetected)
[2024-09-23 12:31] LABS: Cdiff Antigen Positive; Cdiff Toxin A+B Negative Cdiff Toxin (Negative); Cdiff Toxin B Gene (2yr or >) Positive Cdiff Gene (Neg)
--- NOTE | 2024-09-23 16:53 | Hospitalist Progress Note ---
Date of Service September 23, 2024 Assessment & Plan (1) Acute diverticulitis: Plan Pt is a 38 yo male with a past medical history of pior complicated diverticulitis 6 months ago who presents to the hospital on 09/20 for acute uncomplicated diverticulitis. sepsis POA #Acute diverticulitis - prior hx of diverticulitis 6 months ago, scheduled for OP colonoscopy in November - CT abd; acute uncomplicated diverticulitis, possible fistula extending to but not communicating with bladder noted - IV Zosyn - blood cx neg at 24 hours -General surgery following - recommending no surgical intervention at this time, clear liquid diet - CBC w/ leukocytosis downtrending to 13.41 - BMP w/ stable electrolytes and renal function. - CRP increased to 22.57 - Procal negative at 0.07 -GI biofire negative. C diff gene + toxin negative. -consider repeat CTAP if labs worsen along with vitals/symptoms. VTE ppx: none, low risk updated family at bedside 09/23. Admission and Anticipated Discharge Date Admission Date: September 20, 2024 Subjective Patient seen and examined this morning. Patient's family present at time of encounter. patient reports improvement of his abdominal pain today. reports less distention. patient has had a few episodes of loose-liquid stools. patient's diet advanced overnight to clear liquids. Physical Exam Constitutional: WD/WN, vitals as above Eyes: PERRL, conjunctivae normal, anicteric sclerae Respiratory: breathing unlabored Cardiovascular: well perfused Gastrointestinal (Abdomen): +BS, tenderness to palpation in lower ab domen. soft. Psychiatric: A+Ox3, euthymic affect Results & Data Results & Data Vital Signs (Past 12 Hours) Vital Signs Temp Pulse Resp BP Pulse Ox O2 Del Method 09/23/24 14:33 36.7 C 97 H 16 148/90 H 96 Room Air 09/23/24 08:30 Room Air 09/23/24 07:11 36.6 C 90 16 138/80 98 Room Air PG Care Time/CCT Total # of Minutes Spent Total Time Spent with Patient: Total time spent is greater than 50% in coordination of care (as documented) at patient's floor/unit and/or counseling patient: Coding Level of Care Code 48705 SUB INP/OBS CARE 2/35MIN Diagnoses Acute diverticulitis K57.92
--- NOTE | 2024-09-24 06:20 | Surgery Progress Note ---
Date of Service September 24, 2024 Assessment & Plan (1) Acute diverticulitis: Plan: Patient is here w/ recurring diverticulitis, no perf/abscess noted on admitting CT scan on 09/20 -Patient overall feeling significantly better than days previous -Has had no reported fevers in the last 24 hours and yesterday his WBC was slightly downtrending. AM labs are currently pending. -Tolerating clear liquids without any issues. Patient states he is hungry and wants to advance his diet. Discussed with patient that if his WBC continues to improve he can be advanced to full liquids today. -Continue IV antibiotics -Low threshold to repeat CT scan if fevers, worsening pain/symptoms -If patient continues to make good progress we will recommend pt f/u with a surgeon [place] to [place] ([place]) for consideration of elective surgical resection given recurring episodes & concern for fistula to bladder & his young age Admission and Anticipated Discharge Date Admission Date: September 20, 2024 Supervising Physician Co-Signing Physician Notes Patient seen and examined, labs reviewed, agree with above. Admitted with recurrent diverticulitis, question of possible fistula. He is feeling much better today, tolerating clears, pain is very manageable and has significantly decreased. No fevers overnight. On exam he is afebrile with stable vitals. His abdomen is soft, minimally tender to palpation left lower quadrant. WBC normalized today. Can advance to low fiber diet as tolerated, potential discharge today or tomorrow on oral antibiotics. Follow-up with Dr. Bhat as an outpatient. Subjective Patient doing well this morning, states he is feeling much better than previous. Still complaints of some abdominal distention and mild discomfort but overall improved. Tolerated clear liquids yesterday without any issues of worsening abdominal pain, N/V. Passing gas, +BMs AM labs pending, however he has been afebrile, VSS, denies fevers or chills Physical Exam Constitutional: WD/WN, vitals as above Respiratory: normal respiratory effort, lungs clear to auscultation Cardiovascular: RRR, no murmur, no edema Gastrointestinal (Abdomen): Abdomen soft, mild distention. +TTP in the LLQ/suprapubic region however no rebound or guarding. Skin: no rashes, warm and dry Results & Data Vital Signs (Past 12 Hours) Vital Signs Temp Pulse Resp BP Pulse Ox O2 Del Method 09/23/24 19:11 36.6 C 84 16 150/89 H 94 Room Air PG Care Time/CCT Total # of Minutes Spent Total Time Spent with Patient: Total time spent is greater than 50% in coordination of care (as documented) at patient's floor/unit and/or counseling patient: Coding Level of Care Code 57017 SUB INP/OBS CARE 10/08MIN Medical Decision Making Straight Forward Diagnoses Acute diverticulitis K57.92
[2024-09-24 07:35] LABS: Basophils # (auto) 0.08 K/uL (0.00-0.20); Basophils % (auto) 0.9 %; Eosinophils # (auto) 0.56 K/uL (0.00-0.50); Eosinophils % (auto) 6.2 %; Hematocrit (blood only) 41.1 % (42.0-52.0); Hemoglobin 13.9 g/dl (14.0-18.0); Immature Granulocytes # (auto) 0.02 K/uL (0.01-0.20); Immature Granulocytes % (auto) 0.2 %; Lymphocytes # (auto) 2.01 K/uL (1.20-3.40); Lymphocytes % (auto) 22.2 %; Mean Corpuscular Hemoglobin 31.2 pg (25.0-34.0); Mean Corpuscular Hgb Conc 33.8 g/dL (32.0-36.0); Mean Corpuscular Volume 92.2 fL (80.0-100.0); Mean Platelet Volume 10.1 fL (9.4-12.4); Monocytes # (auto) 0.78 K/uL (0.11-0.59); Monocytes % (auto) 8.6 %; Neutrophils % (auto) 61.9 %; Platelet Count 162 K/uL (130-400); RDW Coefficient of Variation 12.8 % (11.5-14.5); RDW Standard Deviation 42.8 fL (36.4-46.3); Red Blood Count 4.46 M/uL (4.70-6.10); White Blood Count 9.05 K/ul (4.8-10.8)
[2024-09-24 07:50] VITALS: BP 143/95; PULSE 85; TEMP 98.4; O2SAT 96
[2024-09-24 08:10] LABS: Albumin Globulin Ratio 1.4 (0.9-2); Albumin Level 3.9 gm/dl (3.4-5.0); BUN Creatinine Ratio 10.2 (10-20); Bilirubin,Total 1.1 mg/dl (0.2-1.0); C Reactive Protein 13.28 mg/dl (0-0.5); Calcium 8.8 mg/dl (8.6-10.3); Creatinine Clr Calc Pharmacy 135.8 ml/min; Globulin 2.8 gm/dl (2.5-4.0); Potassium 3.8 mmol/L (3.5-5.1); Total Protein 6.7 gm/dl (6.0-8.3)
--- NOTE | 2024-09-24 09:47 | Discharge Summary ---
Discharge Summary Date of Service September 24, 2024 Principal Dx & Hospital Course #1 = Principal Diagnosis (1) Acute diverticulitis: Plan Pt is a 38 yo male with a past medical history of pior complicated diverticulitis 6 months ago who presents to the hospital on 09/20 for acute uncomplicated diverticulitis. early sepsis POA #Acute diverticulitis - prior hx of diverticulitis 6 months ago, scheduled for OP colonoscopy in November - CT abd; acute uncomplicated diverticulitis, possible fistula extending to but not communicating with bladder noted - IV Zosyn - blood cx neg at 48 hours -General surgery following - okay for discharge from their standpoint - CBC w/ WBC WNL at 9.05 - BMP w/ stable electrolytes and renal function. - CRP downtrending to 13.28 - Procal negative at 0.07 -GI biofire negative. C diff gene + toxin negative. -Patient recommended to follow up with surgeon closer to home upon discharge to discuss elective bowel resection due to recurrent episodes of diverticulitis. Patient discharged home 09/24. Admission HPI Per Admitting Provider Pt is a 38 yo male with a past medical history of pior complicated diverticulitis 6 months ago who presents to the hospital on 09/20 for acute uncomplicated diverticulitis. Pt states that episode started a few days ago with abdominal pain. He states he had diverticulitis about 6 months ago in [place] and was due to have a f/u colonoscopy from that at the beginning of November before establishing with GI for further guidance. He states that he has had just about no oral intake the last day or so since eating food made his abdominal pain and nausea/vomiting worse. He reports fevers at home the last few days up to 101 F. He states right now he is feeling well but has not eaten anything since being here either. No chest pain or SOB. No nausea or vomiting since being here. Discharge Exam Constitutional WD/WN, vitals as above Eyes PERRL, conjunctivae normal, anicteric sclerae Gastrointestinal (Abdomen) normal bowel sounds, soft, nontender, no hepatosplenomegaly Psychiatric A+Ox3, euthymic affect Discharge Plan Discharge Items Patient Disposition: Home - Self-Care Reason For Visit: ACUTE UNCOMPLICATED DIVERTICULITIS Discharge Diagnosis: acute uncomplicated diverticulitis Activity: Resume your previous activity Non-emergency contact: Primary Care Provider Call non-emergency contact if: your symptoms worsen, you have a fever and your temperature is above 101.5 Follow-up/Referrals: Jeffry Bhat, DO [Surgeon] - (please call to schedule follow up in the office to discuss elective surgery options after your colonoscopy) PCP,NO [Primary Care Provider] - Diet: Low Fiber Addtl Attending Provider Instructions: Thai Smith were recently hospitalized for abdominal pain and found to have diverticulitis. Please see recommendations below regarding discharge. 1. Please take Augmentin twice daily for the next 10 days. Your first dose will be this evening, 09/24. Please take with food to avoid GI upset. Please take a probiotic while on the antibiotic. 2. Please use Tylenol for any lingering pain. 3. Please continue on a low fiber diet for 6 weeks. 4. Please follow up outpatient for a colonoscopy. 5. Please consider an appointment with a surgeon to discuss elective resection given you have had multiple episodes of diverticulitis thus far. If you develop any worsening abdominal pain, nausea, vomiting, or blood in stool please report back to the ER for further care. Sincerely, Garima Hughes PA-C Pending Studies at Discharge: No Stand-Alone Forms: [facility], Smoking Cessation Medications and DC Order Prescriptions: New amoxicillin-pot clavulanate 875-125 mg tablet 1 tab PO BID Qty: 20 0RF Discharge Orders: Discharge Order (Routine); Ordered 09/24/24 Ordered By: Garima Murguia/Other Patient Handouts: Low-Fiber Diet, Diverticulosis and Diverticulitis, Diverticulitis Dc Admission Data Admit Date/Time: 09/20/24 21:33 Attending Provider: Asher [place] Admit Provider: Jenise Mosqueda Primary Care Provider: PCP,NO Other Providers: Jeffry Bhat Other Interventions: Discharge Summary Assessment (RN) Last Done: 09/24/24 12:42 Hospital Stay Data Consultations 09/21/24 06:16 Consult General Surgery Routine Diagnostic Imagining Performed 09/20/24 17:34 CT abd pelvis IV con only Stat Pending Results Patient Have Any Pending Studies at Discharge: No Discharge Instructions Given to Patient (Per Discharging Provider) Mr. Rudolph, Thai were recently hospitalized for abdominal pain and found to have diverticulitis. Please see recommendations below regarding discharge. 1. Please take Augmentin twice daily for the next 10 days. Your first dose will be this evening, 09/24. Please take with food to avoid GI upset. Please take a probiotic while on the antibiotic. 2. Please use Tylenol for any lingering pain. 3. Please continue on a low fiber diet for 6 weeks. 4. Please follow up outpatient for a colonoscopy. 5. Please consider an appointment with a surgeon to discuss elective resection given you have had multiple episodes of diverticulitis thus far. If you develop any worsening abdominal pain, nausea, vomiting, or blood in stool please report back to the ER for further care. Sincerely, Garima Hughes PA-C Total Time Total Time Spent Total Time Spent (In Minutes): 45 Total Time Includes: Examination of the Patient, Discharge Planning, Medication Reconciliation and Communication With Other Providers Coding Level of Care Code 73835 INP/OBS DISCH >30 MIN Diagnoses Acute diverticulitis K57.92
== END 2024-09-24 15:15 | disposition home or self-care (01) | DRG 872 ==
LOC: ED 17:24 → 3N 21:33 → SUATTDRO 21:33 → 3N 22:14